=== PATIENT | female | born 1990 | race Two or more races ===

== ENCOUNTER 2024-01-25 02:38 | Emergency (ER) | payer OTHER ==
[~2024-01-25] VITALS: Ht 157.5 cm; Wt 94.3 kg
[2024-01-25] MEDS ORDERED: DIPHENHYDRAMINE HCL 50 MG/ML VIAL 1ML IV STA (03:11)
[2024-01-25] MEDS ORDERED: FAMOTIDINE/PF 20 MG/2 ML VIAL IV PUSH STA (03:11)
[2024-01-25] MEDS ORDERED: METHYLPREDNISOLONE SOD SUCC 125 MG VIAL IV STA (03:11)
[2024-01-25] MEDS ORDERED: EPINEPHRINE HCL/PF 1 MG/ML AMPUL SUBCUTANEO STA (03:12)
[2024-01-25] MEDS ORDERED: EPINEPHRINE HCL/PF 1 MG/ML AMPUL ONE (03:18)
[2024-01-25] MEDS ORDERED: METHYLPREDNISOLONE SOD SUCC 125 MG VIAL ONE (03:19)
[2024-01-25] MEDS ORDERED: DIPHENHYDRAMINE HCL 50 MG/ML VIAL 1ML ONE (03:19)
[2024-01-25] MEDS ORDERED: FAMOtidine 200mg/20ml VIAL ONE (03:20)
[2024-01-25] MEDS ORDERED: MEDROL8 MG PO (04:13)
[2024-01-25] MEDS ORDERED: BENADRYL25 MG PO (04:13)
[2024-01-25] MEDS ORDERED: PEPCID40 MG PO (04:13)
== END 2024-01-25 04:31 ==
LOC: ER 02:39
DX: R21 Rash and other nonspecific skin eruption (principal); T78.40XA Allergy, unspecified, initial encounter; Z91.013 Allergy to seafood

== ENCOUNTER 2024-04-26 16:58 | Emergency (ER) | payer OTHER ==
[~2024-04-26] VITALS: Ht 160 cm; Wt 122.5 kg
[~2024-04-26 16:58] MED LIST: BENADRYL25 MG PO; MEDROL8 MG PO; PEPCID40 MG PO
[2024-04-26] MEDS ORDERED: KETOROLAC TROMETHAMINE 60 MG VIAL IM ONE (20:00)
[2024-04-26 20:10] LABS: HEMOGLOBIN 13.8 g/dL (12.0-15.00); MEAN CORPUSCULAR HEMOGLOBIN 27.6 pg (27.00-32.0); MEAN CORPUSCULAR HGB CONC 34.5 g/dl (32.0-36.0); PLATELET COUNT 276 K/uL (150-450); RED CELL DISTRIBUTION WIDTH 14.2 % (11.5-14.5)
[2024-04-26 20:12] LABS: ERYTHROCYTE SEDIMENTATION RATE 64 mm/hr
== END 2024-04-26 22:18 | disposition home or self-care (01) ==
LOC: ER 17:00
PROVIDERS: Nurse Practitioner Family
DX: M79.675 Pain in left toe(s) (principal); M77.32 Calcaneal spur, left foot; Z88.8 Allergy status to other drugs, medicaments and biological substances; Z91.013 Allergy to seafood

== ENCOUNTER 2024-05-05 05:35 | Day surgery (SDC) | payer OTHER ==
[2024-05-05] MEDS ORDERED: MIDAZOLAM HCL/PF 5 MG/ML VIAL IV ONE (08:00)
[2024-05-05] MEDS ORDERED: MEPERIDINE HCL/PF 50 MG/ML VIAL IV ONE (08:00)
[2024-05-05] MEDS ORDERED: DIPHENHYDRAMINE HCL 50 MG/ML VIAL 1ML IV ONE (08:00)
== END 2024-05-05 09:36 | disposition home or self-care (01) ==
LOC: AMB-ENDOS 05:35 → CIR.AMB 13:45
PROVIDERS: ATTEND Surgery
DX: K29.50 Unspecified chronic gastritis without bleeding (principal); K44.9 Diaphragmatic hernia without obstruction or gangrene; R10.13 Epigastric pain; E66.09 Other obesity due to excess calories; Z91.041 Radiographic dye allergy status; Z91.013 Allergy to seafood